=== PATIENT | female | born 1975 | race Caucasian/White ===

== ENCOUNTER → 2017-03-08 | Outpatient (CLI) | payer OTHER ==
[~2017-03-08] VITALS: Ht 152.4 cm; Wt 90.7 kg
[~2017-03-08] MED LIST: TRAMADOL HCL50 MG PO
== END | disposition home or self-care (01) ==
LOC: PPHC 15:03
DX: R09.81 Nasal congestion (principal)

== ENCOUNTER → 2017-03-16 11:09 | Outpatient (CLI) | payer OTHER | END | disposition home or self-care (01) | LOC: LAB 11:09 | DX: O00.101 Right tubal pregnancy without intrauterine pregnancy (principal) ==

== ENCOUNTER → 2017-03-16 | Outpatient (CLI) | payer OTHER | END | disposition home or self-care (01) | LOC: SONOGRAMA 12:10 | DX: O00.101 Right tubal pregnancy without intrauterine pregnancy (principal) ==